=== PATIENT | male | born 1950 | race Two or more races ===

== ENCOUNTER → 2024-10-24 | Outpatient (CLI) | payer MEDICARE, BC, SELFPAY ==
--- NOTE | 2024-10-24 | XR_ITS ---
Examination: CT chest, without intravenous contrast. Sagittal and coronal 2-D reconstructions. Exam date and time: October 24, 2024 1055 hours INDICATIONS: COPD diagnosis multiple history 48 years CTDI:vol (mGy) 16.5 DLP: (mGycm) 661 Technique: Multiple 3.0 mm axial sections of the chest to been obtained. Bone and lung density settings are obtained. Sagittal and coronal 2-D reconstructions have been obtained. Low dose protocols were performed. One or more of the following dose reduction techniques were used; automated exposure control, adjustment of the mA and/or KV according to patient size, use of iterative reconstruction technique. Findings: No thoracic aortic aneurysm dilatation Pulmonary artery segments are not enlarged Heavy calcification left anterior descending left circumflex right coronary arteries COPD with areas of airspace destruction No pneumonia, pulmonary edema, pleural disease or pulmonary nodules Mass involving the medial margin of the spleen, 4.2 cm, axial image 156 Small gallstone No pancreatic mass IMPRESSION: COPD No pneumonia, pulmonary edema pleural disease or pulmonary nodules 4.2 cm splenic mass, recommend abdominal sonography follow-up
== END | disposition home or self-care (01) ==
PROVIDERS: PCP Family Medicine; Referring Provider Family Medicine; Visit Provider Family Medicine
DX: J44.9 Chronic obstructive pulmonary disease, unspecified (principal)
CPT/HCPCS: 71250

== ENCOUNTER 2024-11-01 10:30 | Emergency (ER) | payer MEDICARE, BC, SELFPAY ==
[2024-11-01 10:31] VITALS: BMI 32.5
[2024-11-01 10:40] VITALS: BP 168/93; PULSE 82; RESP 18; TEMP 36.6; O2SAT 98
--- NOTE | 2024-11-01 10:40 | XR_ITS ---
Examination: CT abdomen and pelvis without contrast. Coronal 3-D reconstructions. Sagittal 2-D reconstructions. Date and time of exam:November 01, 2024 1152 hours Comparison April 11, 2021 INDICATIONS: Generalized abdominal pain with bilateral flank pain today, 13 mm right kidney stone on CT study April 11, 2021 CTDI: vol (mGy): 12 DLP: (mGycm): 837 Technique: Axial images of the abdomen have been obtained, 3 mm slice thickness Intravenous contrast material has not been administered. Low dose protocols were performed. One or more of the following dose reduction techniques were used; automated exposure control, adjustment of the mA and/or KV according to patient size, use of iterative reconstruction technique. Findings: Heavy calcification left anterior descending coronary artery Mild enlargement cardiac No focal liver lesions Tiny gallstones Lobulation versus small mass medial margin spleen, 38 mm, image 69 No pancreatic or adrenal mass Significant parenchymal scar formation right kidney with 13 mm lower pole right renal calculus No hydronephrosis or ureteral calculi Aorta normal size Normal appendix No bowel obstruction Colonic diverticulosis Transverse prostate dimension 4.5 cm Contracted urinary bladder Moderate osteopenia IMPRESSION: Cholelithiasis Recommend splenic ultrasound follow-up to differentiate lobulation versus 38 mm mass medial margin of the spleen 13 mm nonobstructing lower pole right renal calculus with significant scar formation right kidney Normal appendix No bowel obstruction
--- NOTE | 2024-11-01 10:41 | PD.EDBACK ---
ED Back Injury Pain RME/HPI General Chief Complaint: Back Pain/Injury Stated Complaint: BACK PAIN Time Seen by Provider: 11/01/24 10:42 Source: patient Arrival date/time: 11/01/24 10:30 74-year-old male with a history of hyperlipidemia, hypertension, type 2 diabetes presents to the emergency room with a chief complaint of dysuria, lower lumbar and right CVA tenderness x 2 days Mode of arrival: ambulatory Limitations: no limitations Related Data Home Medications ?Medication ?Instructions ?Recorded ?Confirmed aspirin 81 mg tablet 81 mg PO QDAY 03/06/24 03/06/24 Held on 03/06/24. Instructions: Resume on 03/07/24. RE-START MEDICATION ON THIS DATE AT YOUR USUAL TIME atorvastatin 40 mg tablet 20 mg PO BID 03/06/24 03/06/24 clopidogrel 75 mg tablet 75 mg PO QDAY 03/06/24 03/06/24 Held on 03/06/24. Instructions: Resume on 03/07/24. RE-START MEDICATION ON THIS DATE AT YOUR USUAL TIME doxazosin 4 mg tablet 4 mg PO QDAY 03/06/24 03/06/24 finasteride 5 mg tablet 5 mg PO DAILY 03/06/24 03/06/24 folic acid 400 mcg tablet 0.4 mg PO QDAY 03/06/24 03/06/24 lisinopril 20 mg tablet 20 mg PO QDAY 03/06/24 03/06/24 metoprolol succinate 200 mg 100 mg PO BID 03/06/24 03/06/24 tablet,extended release 24 hr omeprazole 20 mg capsule,delayed 20 mg PO BID 03/06/24 03/06/24 release semaglutide 1 mg/dose (4 mg/3 mL) 1 mg subcut QWEEK 03/06/24 03/06/24 subcutaneous pen injector (Ozempic) Previous Rx's ?Medication ?Instructions ?Recorded hydrocodone 5 mg-acetaminophen 325 1 tab PO BID PRN pain #10 tabs 11/01/24 mg tablet tamsulosin 0.4 mg capsule (Flomax) 0.4 mg PO QDAY #14 caps 11/01/24 Allergies Allergy/AdvReac Type Severity Reaction Status Date / Time Iodinated Contrast Media Allergy Severe Hives Verified 04/11/21 10:17 Review of Systems Review of Systems Systems Reviewed: All systems reviewed, normal except as documented Constitutional Constitutional: Reports system reviewed and no additional complaints, except as documented, Denies fatigue, Denies fever(s), Denies headache(s) and Denies weakness Eyes Eyes: Reports system reviewed and no additional complaints, except as documented, Denies blurry vision and Denies change in vision ENT Ears, Nose, Mouth, and Throat: Reports system reviewed and no additional complaints, except as documented, Denies otalgia, Denies headache(s), Denies nasal congestion, Denies throat swelling and Denies vertigo Cardiovascular Cardiovascular: Reports system reviewed and no additional complaints, except as documented, Denies chest pain, Denies dyspnea and Denies dyspnea on exertion Respiratory Respiratory: Reports system reviewed and no additional complaints, except as documented, Denies chest congestion, Denies cough, Denies dyspnea, Denies dyspnea on exertion and Denies wheezing Gastrointestinal Gastrointestinal: Reports system reviewed and no additional complaints, except as documented, Denies abdominal pain, Denies cramping, Denies nausea and Denies vomiting Genitourinary Genitourinary: Reports system reviewed and no additional complaints, except as documented, Reports dysuria, Denies hematuria, Denies painful ejaculations and Denies penile discharge Musculoskeletal Musculoskeletal: Reports system reviewed and no additional complaints, except as documented and Reports back pain Integumentary/Breasts Skin/Breast: Reports system reviewed and no additional complaints, except as documented and Denies wounds Neurologic Neurologic: Reports system reviewed and no additional complaints, except as documented, Denies confusion, Denies headache(s), Denies lack of coordination, Denies vertigo and Denies weakness Psychiatric Psychiatric: Reports system reviewed and no additional complaints, except as documented, Denies anxiety, Denies confusion, Denies depression, Denies paranoia, Denies suicidal ideation and Denies tactile hallucinations Endocrine Endocrine: Reports system reviewed and no additional complaints, except as documented and Denies fatigue Hematologic/Lymphatic Hematologic/Lymphatic: Reports system reviewed and no additional complaints, except as documented and Denies lymphadenopathy Allergic/Immunologic Allergic/Immunologic: Reports system reviewed and no additional complaints, except as documented, Denies throat swelling, Denies urticaria and Denies wheezing Past Medical History Past Medical History NEUROLOGIC: Positive Neurological Disorders and Transient Ischemic Attacks (TIA) CARDIAC: Positive Cardiac Disorders, Hypercholesterolemia and Hypertension; Negative Congestive Heart Failure RESPIRATORY: Negative Chronic Obstructive Pulmonary Disease (COPD) GASTROINTESTINAL: Negative Gastrointestinal Disorders GENITOURINARY: Negative Genitourinary Disorders, Renal Disease or Benign Prostatic Hyperplasia MUSCULOSKELETAL: Positive Musculoskeletal Disorders ENT: Positive Cataracts ENDOCRINE: Positive Endocrine Disorders and Diabetes Mellitus Type 2; Negative Diabetes Mellitus Type 1 HEMATOLOGIC: Negative Blood Disorders OTHER HISTORY: Negative Blood Transfusions, Anesthesia Reactions, Chemotherapy, Radiation Therapy or Cancer Surgical History SURGICAL: Positive Coronary Stent (x8), Cardiac Catheterization and Angiogram; Negative Open Heart Surgery, Pacemaker, Endocrine Surgery, Abdominal Surgery or Joint Replacement Social History SMOKING STATUS: Never smoker ED Exam General Limitations: Present no limitations General appearance: Present alert and in no apparent distress Head Head exam: Present atraumatic Eye Eye exam: Present normal appearance, PERRL and EOMI ENT ENT exam: Present normal exam, normal oropharynx and mucous membranes moist Neck Neck exam: Present normal inspection, full ROM and trachea midline Chest Chest inspection: Present normal inspection and symmetric chest wall rise Respiratory Respiratory exam: Present normal lung sounds bilaterally Cardiovascular Cardiovascular exam: Present regular rate, normal rhythm and normal heart sounds Abdominal Exam Abdominal exam: Present soft and normal bowel sounds Extremities Exam Extremities exam: Present normal inspection and full ROM Back Exam Back exam: Present normal inspection, full ROM, tenderness, CVA tenderness (R) and vertebral tenderness Neurological Exam Neurological exam: Present alert, oriented X3 and CN II-XII intact Psychiatric Psychiatric exam: Present normal affect and normal mood Skin Skin exam: Present warm, dry, intact and normal color Course Quality Measures none Orders Category Date Time Status CT abdomen pelvis wo con Stat Exams 11/01/24 10:40 Completed CBC Stat Lab 11/01/24 10:47 Completed CMP [Comprehensive Metabolic Panel] Stat Lab 11/01/24 10:47 Completed Lipase Stat Lab 11/01/24 10:47 Completed UA [Urinalysis] Stat Lab 11/01/24 11:28 Completed Urine Culture Stat Lab 11/01/24 11:28 Received Ketorolac Inj [Toradol Inj] Med 11/01/24 10:41 Discontinued 30 mg IM X1 ONE Vital Signs Vital signs: Vital Signs Temperature 97.9 F 11/01/24 10:40 Pulse Rate 82 11/01/24 10:40 Respiratory Rate 18 11/01/24 10:40 Blood Pressure 168/93 H 11/01/24 10:40 Pulse Oximetry (%) 98 11/01/24 10:40 Oxygen Delivery Method Room Air 11/01/24 10:40 O2 saturation 98% within normal limits Back Pain / Injury MDM Narrative MDM Narrative:: 74-year-old male with a history of hyperlipidemia, hypertension, type 2 diabetes presents to the emergency room with a chief complaint of dysuria, lower lumbar and right CVA tenderness x 2 days The patient is hemodynamically stable and in no apparent distress. Physical examination shows right CVA tenderness and lumbar back pain with palpation. CT of the abdomen and pelvis was completed and shows a 13 mm nonobstructing renal calculi. The CT of the abdomen and pelvis also had an incidental finding of a possible mass in the spleen. Patient was educated about this incidental finding and the patient was educated to follow-up with his primary care provider has a radiologist recommends an ultrasound of the spleen to rule out a mass. Patient was discharged and educated to follow-up with his primary care provider get a referral to urologist for further management of the stone. Patient was given pain medication and educated to return to the emergency room for any evidence of worsening signs or symptoms Patient data External records reviewed:: [facility] previous records Clinical information provided by:: patient Social determinants that could affect healthcare access:: none Patient has the following chronic illnesses:: Hyperlipidemia How is presenting disease/condition affected by chronic disease/condition?: no chronic disease Evaluation data The following diagnostics were reviewed and interpreted by me:: lab results and radiology exam(s) Lab and/or radiology exams considered but not ordered:: Labs and radiology exams considered and ordered Interpretation Summary: Abdomen and pelvis CT-Findings: Heavy calcification left anterior descending coronary artery Mild enlargement cardiac No focal liver lesions Tiny gallstones Lobulation versus small mass medial margin spleen, 38 mm, image 69 No pancreatic or adrenal mass Significant parenchymal scar formation right kidney with 13 mm lower pole right renal calculus No hydronephrosis or ureteral calculi Aorta normal size Normal appendix No bowel obstruction Colonic diverticulosis Transverse prostate dimension 4.5 cm Contracted urinary bladder Moderate osteopenia IMPRESSION: Cholelithiasis Recommend splenic ultrasound follow-up to differentiate lobulation versus 38 mm mass medial margin of the spleen 13 mm nonobstructing lower pole right renal calculus with significant scar formation right kidney Normal appendix No bowel obstruction Medications / Prescriptions Medications or Prescriptions considered but not ordered:: Medication given Medication administrations:: Medication Administration History Discontinued Medications Ketorolac Tromethamine (Ketorolac Inj 60 Mg/2 Ml Vial) 30 mg IM X1 ONE Stop: 11/01/24 10:42 Last Admin: 11/01/24 11:20 Dose: 30 mg Documented By: Rx given Consultations Consultation(s) initiated? (list below): No Diagnosis Differential diagnosis back pain/injury: lumbar radiculopathy, strain of lumbar region, renal colic, discitis and other (Renal calculi) Most likely diagnosis given after review of the tests above:: Renal calculi Admission Indicated Admission indicated?: not indicated Admission Request Was there a request for admission?: No Disposition Plan Disposition Plan: Discharge Discharge Attestation Discharge Attestation: The patient and all family members were given an opportunity to ask questions and understood the discharge instructions. Discharge instructions specifically effects, indications for sooner follow up or return to the emergency department, and the expected course of current diagnosis. Patient condition: Stable Discharge Plan Plan Patient Disposition: HOME (Self Care) Disposition Comment: Stable Prescriptions/Referrals Prescriptions/Med Rec: New tamsulosin [Flomax] 0.4 mg capsule 0.4 mg PO QDAY Qty: 14 0RF hydrocodone-acetaminophen 5-325 mg tablet 1 tab PO BID MDD 10mg PRN (Reason: pain) Qty: 10 0RF No Action atorvastatin 40 mg Tablet 20 mg PO BID Rx Instructions: 0.5 tablet bid metoprolol succinate 200 mg Tablet Extended Release 24 Hr 100 mg PO BID Rx Instructions: 0.5 tablet bid lisinopril 20 mg Tablet 20 mg PO QDAY clopidogrel 75 mg Tablet 75 mg PO QDAY folic acid 400 mcg Tablet 0.4 mg PO QDAY omeprazole 20 mg Capsule,Delayed Release(Dr/Ec) 20 mg PO BID doxazosin 4 mg Tablet 4 mg PO QDAY aspirin 81 mg Tablet 81 mg PO QDAY finasteride 5 mg Tablet 5 mg PO DAILY Ozempic 1 mg/dose (4 mg/3 mL) Pen Injector 1 mg SUBCUT QWEEK Referrals: Leroy Chicas MD [Primary Care Provider] - In 1 week Problem List Clinical Impression: Renal colic, Calculus, renal Patient/Caregiver Discharge Instructions Education Materials: ED Kidney Stone w/ Colic Additional Instructions: Please follow-up with your primary care provider in the next [address] of your abdomen was completed and found a 13 mm renal stone. Pain medication was sent to your pharmacy please pick it up and take it as indicated. There is also an incidental finding in your spleen. Our radiologist recommends getting an ultrasound of your spleen as there is a possibility there is a mass. For any evidence of worsening signs or symptoms please return to the emergency room immediately Print Language: Uzbek Stand Alone Forms: Charo Award Info., Patient Portal Info Letter PA/CD REACTOR OPERATOR Supervising Physician PA/CD REACTOR OPERATOR Supervising Physician: Dr. Tang
[2024-11-01 11:17] LABS: Basophils # (Auto) 0.1 Thou/mm3 (0.0-0.2); Basophils % (Auto) 1 % (0-2.5); Eosinophils # (Auto) 0.2 Thou/mm3 (0.0-0.5); Eosinophils % (Auto) 3 % (0-10); Hematocrit 41.8 % (41.0-53.0); Hemoglobin 13.8 g/dL (13.5-16.0); Immature Granulocytes % (Auto) 1 % (0-0); Immature Granulocytes Auto 0.03 Thou/mm3 (0.00-0.00); Lymphocytes # (Auto) 1.4 Thou/mm3 (1.0-4.8); Lymphocytes % (Auto) 23 % (10-50); Mean Corpuscular Hemoglobin 29.4 pg (25.0-35.0); Mean Corpuscular Volume 89 fL (80-100); Monocytes # (Auto) 0.5 Thou/mm3 (0.0-0.8); Monocytes % (Auto) 8 % (0-12); Neutrophils % (Auto) 65 % (37-80); Nucleated Red Blood Cell % 0 /100 WBC (0); Platelet Count 172 Thou/mm3 (140-440); RDW Standard Deviation 38.8 fL (35.1-43.9); Red Blood Count 4.69 Miln/mm3 (4.50-5.90); White Blood Count 6.2 Thou/mm3 (3.8-10.6)
[2024-11-01] MEDS: KETOROLAC INJ 60 MG/2 ML VIAL 30 MG IM (11:20)
[2024-11-01 11:41] LABS: Collection Type, Urine Clean Catch
[2024-11-01 11:43] LABS: Alanine Aminotransferase 17 U/L (10-49); Albumin, Serum 4.5 gm/dL (3.4-4.8); Alkaline Phosphatase 109 U/L (46-116); Anion Gap 5 (7-16); Aspartate Amino Transferase 22 U/L (0-34); BUN/Creatinine Ratio 11 Ratio (12-20); Bilirubin,Total 0.7 mg/dL (0.3-1.2); Blood Urea Nitrogen 11 mg/dL (9-23); Carbon Dioxide 28.2 mMol/L (20.0-31.0); Chloride 108 mMol/L (98-107); Estimated Creatinine Clearance 80.1 mL/min (>60); Globulin 2.3 gm/dL (2.3-3.5); Glucose 135 mg/dL (74-106); Lipase 55 U/L (12-53); Osmolality,Calculated 282 (275-295); Potassium 5.1 mMol/L (3.4-5.1); Sodium 141 mMol/L (136-145); Total Protein 6.8 gm/dL (5.7-8.2); eGFR > 60 See Note
[2024-11-01 11:48] LABS: Bacteria,Urine Rare; Bilirubin,Urine Negative (Negative); Blood,Urine 2+ (Negative); Clarity,Urine Clear (Clear/Hazy); Color,Urine Yellow (Lt Yel-Yel); Glucose, Urine 2+ (Negative); Hyaline Casts,Urine < 1 /hpf (0-1); Ketones,Urine Negative (Negative); Leukocyte Esterase,Urine Negative (Negative); Nitrite,Urine Negative (Negative); Protein,Urine 1+ (Neg - Trace); RBC,Urine 34 /hpf (0-3); Specific Gravity,Urine 1.031 (1.001-1.035); Squamous Epithelial Cell,Urine < 1 /hpf (0-5); Urobilinogen,Urine Negative mg/dL (0.0-1.0); WBC,Urine 4 /hpf (0-5)
== END 2024-11-01 13:59 | disposition home or self-care (01) ==
PROVIDERS: Nurse Practitioner Family; Emergency Provider Emergency Medicine; PCP Family Medicine
DX: N20.0 Calculus of kidney (principal); N23 Unspecified renal colic; I10 Essential (primary) hypertension; E78.5 Hyperlipidemia, unspecified; E11.9 Type 2 diabetes mellitus without complications
CPT/HCPCS: 36415; 74176; 80053; 81001; 83690; 85025; 87086; 96372; 99284; J1885

== ENCOUNTER 2024-11-16 20:00 | Emergency (ER) | payer MEDICARE, BC, SELFPAY ==
[2024-11-16 20:04] VITALS: BMI 33.9
[2024-11-16 20:13] VITALS: BP 197/113; PULSE 79; RESP 17; TEMP 36.6; O2SAT 98
--- NOTE | 2024-11-16 20:14 | XR_ITS ---
Examination: Abdomen sonogram, Limited Date and time of exam: November 16, 2024 2035 hrs. Indications: Right upper abdominal tenderness today Technique: Real-time hale scale transabdominal sonographic images of the upper abdomen obtained. Findings: Gallbladder sludge No gallstones Normal gallbladder wall Normal common bile duct 0.3 cm Pancreatic head 3.6 cm Liver 22.3 cm lobular contour fatty infiltration no focal liver lesions Normal hepatopedal portal venous flow Patent IVC Impression: Negative for cholelithiasis, negative for cholecystitis Normal common bile duct Significant hepatomegaly, primary hepatocellular disease, fatty infiltration
--- NOTE | 2024-11-16 20:14 | XR_ITS ---
Examination: CT abdomen and pelvis without contrast. Coronal 3-D reconstructions. Sagittal 2-D reconstructions. Date and time of exam:November 16, 2024 10:00 PM Comparison November 01, 2024 Indications: Right flank pain beginning 2 weeks ago CTDI: vol (mGy): 12.7 DLP: (mGycm): 848 Technique: Axial images of the abdomen have been obtained, 3 mm slice thickness Intravenous contrast material has not been administered. Low dose protocols were performed. One or more of the following dose reduction techniques were used; automated exposure control, adjustment of the mA and/or KV according to patient size, use of iterative reconstruction technique. Findings: 12 mm hyperdense lesion medial spleen No focal liver lesion Cholelithiasis No pancreatic or adrenal mass 13 mm calculus lower pole right kidney with significant right renal scar formation No hydronephrosis Abdominal aortic calcification no aneurysmal dilatation No bowel obstruction Transverse prostate dimension 4.8 cm Urinary bladder intact Impression: Recommend elective MRI abdomen follow-up to further assess splenic lesions 13 mm nonobstructing calculus lower pole right kidney Moderate prostatomegaly
--- NOTE | 2024-11-16 20:14 | XR_ITS ---
Examination: CT lumbar spine, without contrast. 2-D sagittal reconstructions. 2-D coronal reconstructions. 3-D reconstructions. Date and time of exam:November 16, 2024 1002 hrs. Indications: Right-sided back pain beginning 2 weeks ago CTDI: vol (mGy):34 DLP: (mGycm):882 Technique: Multiple 1.25 mm axial sections of the lumbar spine without intravenous contrast have been obtained. 2-D sagittal and coronal reconstructions have been obtained. 3-D reconstructions have been obtained. Low dose protocols were performed. One or more of the following dose reduction techniques were used; automated exposure control, adjustment of the mA and/or KV according to patient size, use of iterative reconstruction technique. Findings: Prominent osteopenia No lumbar vertebral body fracture Mild disc narrowing posteriorly L5-S1 No spondylolisthesis Intact pedicles laminated transverse and posterior spinous processes L5-S1 2 mm central lumbar disc bulge L4-L5 3 mm central lumbar disc bulge L3-L4 no disc protrusion L2-L3 no disc protrusion L1-L2 no disc protrusion Impression: L5-S1 2 mm central lumbar disc bulge L4-L5 3 mm central lumbar disc bulge
--- NOTE | 2024-11-16 20:15 | XR_ITS ---
Examination: Ultrasound spleen Technique: Sonographic images soft tissue spleen Exam date and time: November 16, 2024 205 hrs. Indications: Lobulation versus 38 mm mass medial margin spleen on CT abdomen pelvis November 01, 2024 Findings: Spleen 11.3 cm No splenic mass Impression: No splenic mass
[2024-11-16] MEDS: SODIUM CHLORIDE 0.9% 1000 ML 1,000 ML 999 ML IV (20:22)
[2024-11-16] MEDS: ONDANSETRON INJ 2 MG/ML INJ 2 ML 4 MG IV (20:23)
[2024-11-16] MEDS: HYDROmorphone INJ 2 MG/ML VIAL 1 MG IVP ×2 (20:23→23:40)
[2024-11-16 20:45] VITALS: BP 188/87
[2024-11-16 20:49] LABS: Collection Type, Urine Clean Catch; WBC,Urine 0 /hpf (0-5)
[2024-11-16 20:49] LABS: Lactate (Lactic Acid) 1.4 mMol/L (0.4-2.0)
[2024-11-16 20:50] LABS: Basophils # (Auto) 0.1 Thou/mm3 (0.0-0.2); Basophils % (Auto) 1 % (0-2.5); Eosinophils # (Auto) 0.2 Thou/mm3 (0.0-0.5); Eosinophils % (Auto) 3 % (0-10); Hematocrit 42.1 % (41.0-53.0); Hemoglobin 14.2 g/dL (13.5-16.0); Immature Granulocytes % (Auto) 1 % (0-0); Immature Granulocytes Auto 0.09 Thou/mm3 (0.00-0.00); Lymphocytes # (Auto) 1.9 Thou/mm3 (1.0-4.8); Lymphocytes % (Auto) 23 % (10-50); Mean Corpuscular HGB Conc 33.7 g/dl (31.0-37.0); Mean Corpuscular Hemoglobin 29.2 pg (25.0-35.0); Mean Corpuscular Volume 87 fL (80-100); Monocytes # (Auto) 0.7 Thou/mm3 (0.0-0.8); Monocytes % (Auto) 8 % (0-12); Neutrophils # (Auto) 5.2 Thou/mm3 (1.8-7.7); Neutrophils % (Auto) 64 % (37-80); Nucleated Red Blood Cell % 0 /100 WBC (0); Platelet Count 189 Thou/mm3 (140-440); Red Blood Count 4.86 Miln/mm3 (4.50-5.90); White Blood Count 8.1 Thou/mm3 (3.8-10.6)
[2024-11-16 21:20] LABS: Bacteria,Urine Rare; Bilirubin,Urine Negative (Negative); Blood,Urine 2+ (Negative); Clarity,Urine Clear (Clear/Hazy); Color,Urine Lt-Yellow (Lt Yel-Yel); Culture Indicated,Urine Not Indicated; Glucose, Urine Negative (Negative); Ketones,Urine Negative (Negative); Leukocyte Esterase,Urine Negative (Negative); Nitrite,Urine Negative (Negative); Protein,Urine Trace (Neg - Trace); RBC,Urine 5 /hpf (0-3); Specific Gravity,Urine 1.019 (1.001-1.035); Squamous Epithelial Cell,Urine < 1 /hpf (0-5); Urobilinogen,Urine Negative mg/dL (0.0-1.0)
[2024-11-16 21:21] LABS: Sed Rate (ESR) 6 mm/hr (0-20)
[2024-11-16 21:28] LABS: Alanine Aminotransferase 17 U/L (10-49); Albumin, Serum 4.6 gm/dL (3.4-4.8); Alkaline Phosphatase 99 U/L (46-116); Anion Gap 6 (7-16); Aspartate Amino Transferase 19 U/L (0-34); BUN/Creatinine Ratio 15 Ratio (12-20); Bilirubin,Direct 0.2 mg/dL (0.0-0.3); Bilirubin,Total 0.6 mg/dL (0.3-1.2); Blood Urea Nitrogen 15 mg/dL (9-23); Calcium 10.1 mg/dL (8.3-10.6); Carbon Dioxide 28.8 mMol/L (20.0-31.0); Chloride 108 mMol/L (98-107); Estimated Creatinine Clearance 81.7 mL/min (>60); Glucose 146 mg/dL (74-106); Magnesium 1.9 mg/dL (1.6-2.6); Osmolality,Calculated 288 (275-295); Potassium 4.6 mMol/L (3.4-5.1); Procalcitonin 0.06 ng/ml (0.0-0.49); Sodium 143 mMol/L (136-145); Thyroid Stimulating Hormone 2.41 uIU/mL (0.55-4.78); Total Protein 7.2 gm/dL (5.7-8.2); eGFR > 60 See Note
[2024-11-16 21:46] LABS: C-Reactive Protein < 0.4 mg/dL (0.0-0.9)
[2024-11-16 22:28] LABS: Amylase 66 U/L (30-118)
[2024-11-16 22:35] VITALS: BP 131/86; PULSE 82; RESP 17; TEMP 36.6; O2SAT 96
--- NOTE | 2024-11-16 22:53 | PD.EDBACK ---
ED Back Injury Pain RME/HPI General Chief Complaint: Back Pain/Injury Stated Complaint: BACK PAIN Time Seen by Provider: 11/16/24 20:06 Arrival date/time: 11/16/24 20:00 RME / HPI RME / HPI Narrative: This section includes all my notes and documentations, including HPI, PE, and ED course. Jono Tang MD HPI: 74-year-old male here to be evaluated with about a week history of severe low back pain. No vomiting. No fever. No difficulty urinating or hematuria or other urinary symptoms. No numbness or tingling. No paralysis. No loss of control of bladder or bowels. No saddle numbness. No other complaints. ROS: All negative except as documented in HPI. Physical Exam: General: Alert and oriented. In obvious pain. Eyes: Conjunctivae and lids clear. ENT: No nasal congestion. Neck: Supple. Lungs: No respiratory distress. Abdomen: Soft and nontender. Back: No CVA tenderness. Equivocal lumbar midline tenderness. Legs: No clubbing, cyanosis, edema. Skin: Warm and dry. Neuro: Alert and oriented X 3. No peripheral motor deficits. I reviewed all diagnostic test results. My review of the abdominal CT report is no acute findings. My review of the lumbar spine CT report is disc bulgings. My review of the gallbladder US report is no acute findings. My review of the spleen US report is no acute findings. Blood tests and urine tests unremarkable. At this point, diagnoses include lumbar spinal stenosis. Treatment here included IV fluid and Zofran and Dilaudid. Significant improvement noted. Recommended more outpatient care. Based on my best medical judgment, made decision no further evaluation or treatment indicated at this time. Patient understands and agrees to the discharge instructions customized and printed, see below. Discharge Instructions from Dr. Tang: --After evaluation, we are dealing with Sciatica (same as Lumbar Radiculopathy or Spinal Stenosis), disc bulgings are pinching your nerves causing your severe pain. --This condition is difficult because normal pain medications don?t work very well on nerve pain. --Despite the pain, try to resume your normal chores and activities.? Because inactivity is terrible for this condition.? And activity won?t make your condition worse.? Use a cane of stick in your hand to help stand and walk.? --Use Cyclobenzaprine and Tylenol with codeine and lidocaine patches as needed.? Don't expect the pain to go away completely, hoping to take the edge off.?? --When resting and sleeping, try right sided or left position (with your knees to your chest and bending forward).? This can take some pressure off the nerve and help your pain. --Apply ice or heat if helpful. --See a private doctor (outside the ER) on 11/18/24 for recheck and further care. Ask to help you get more care not available here in the ER.? Such as MRI imaging, physical therapy, and referrals to see specialists.? Some choose to have surgery for this condition. But you need to have MRI imaging to confirm the diagnosis and assess the severity to get the best treatments. --Seek immediate medical care with paralysis in your foot, losing control of your bladder or bowels, saddle numbness (anal numbness), or with any concerns.?? Jono Tang MD Related Data Home Medications ?Medication ?Instructions ?Recorded ?Confirmed aspirin 81 mg tablet 81 mg PO QDAY 03/06/24 03/06/24 Held on 03/06/24. Instructions: Resume on 03/07/24. RE-START MEDICATION ON THIS DATE AT YOUR USUAL TIME atorvastatin 40 mg tablet 20 mg PO BID 03/06/24 03/06/24 clopidogrel 75 mg tablet 75 mg PO QDAY 03/06/24 03/06/24 Held on 03/06/24. Instructions: Resume on 03/07/24. RE-START MEDICATION ON THIS DATE AT YOUR USUAL TIME doxazosin 4 mg tablet 4 mg PO QDAY 03/06/24 03/06/24 finasteride 5 mg tablet 5 mg PO DAILY 03/06/24 03/06/24 folic acid 400 mcg tablet 0.4 mg PO QDAY 03/06/24 03/06/24 lisinopril 20 mg tablet 20 mg PO QDAY 03/06/24 03/06/24 metoprolol succinate 200 mg 100 mg PO BID 03/06/24 03/06/24 tablet,extended release 24 hr omeprazole 20 mg capsule,delayed 20 mg PO BID 03/06/24 03/06/24 release semaglutide 1 mg/dose (4 mg/3 mL) 1 mg subcut QWEEK 03/06/24 03/06/24 subcutaneous pen injector (Ozempic) Previous Rx's ?Medication ?Instructions ?Recorded hydrocodone 5 mg-acetaminophen 325 1 tab PO BID PRN pain #10 tabs 11/01/24 mg tablet tamsulosin 0.4 mg capsule (Flomax) 0.4 mg PO QDAY #14 caps 11/01/24 acetaminophen 300 mg-codeine 30 mg 2 tab PO TID PRN pain #20 tabs 11/16/24 tablet cyclobenzaprine 5 mg tablet 10 mg (2 x 5 mg) PO TID PRN muscle 11/16/24 spasm #30 tabs lidocaine 5 % topical patch 2 patch topical QDAY PRN pain #30 11/16/24 (Lidoderm) ea Allergies Allergy/AdvReac Type Severity Reaction Status Date / Time Iodinated Contrast Media Allergy Severe Hives Verified 04/11/21 10:17 Course Quality Measures none Orders Category Date Time Status MRI Screening NOW Care 11/16/24 23:16 Completed Saline [Insert IV] NOW Care 11/16/24 20:[address] abdomen pelvis wo con Stat Exams 11/16/24 20:[address] lumbar spine wo con Stat Exams 11/16/24 20:14 Completed MR lumbar spine wo con Stat Exams 11/16/24 Ordered US gall bladder Stat Exams 11/16/24 20:14 Completed US spleen Stat Exams 11/16/24 20:15 Completed Amylase Stat Lab 11/16/24 20:10 Completed BMP [Basic Metabolic Panel] Stat Lab 11/16/24 20:10 Completed CBC Stat Lab 11/16/24 20:10 Completed CRP [C-Reactive Protein] Stat Lab 11/16/24 20:10 Completed ESR [Sed Rate (ESR)] Stat Lab 11/16/24 20:10 Completed Lactate (Lactic Acid) Stat Lab 11/16/24 20:10 Completed Liver Panel Stat Lab 11/16/24 20:10 Completed Magnesium Stat Lab 11/16/24 20:10 Completed Procalcitonin Stat Lab 11/16/24 20:10 Completed TSH [Thyroid Stimulating Hormone] Stat Lab 11/16/24 20:10 Completed UA, C/S IF [Urinalysis, C/S if Indicated] Stat Lab 11/16/24 20:36 Completed HYDROmorphone INJ [Dilaudid Inj] Med 11/16/24 20:13 Discontinued 1 mg IVP X1 ONE HYDROmorphone INJ [Dilaudid Inj] Med 11/16/24 23:13 Discontinued 1 mg IVP X1 ONE Ondansetron Inj [Zofran Inj] Med 11/16/24 20:13 Discontinued 4 mg IV X1 ONE Sodium Chloride 0.9% 1000 ml [Ns] 1,000 ml Med 11/16/24 20:13 Discontinued IV 999 mls/hr Vital Signs Vital signs: Vital Signs Temperature 97.9 F 11/16/24 20:13 Pulse Rate 79 11/16/24 20:13 Respiratory Rate 17 11/16/24 20:13 Blood Pressure 197/113 H 11/16/24 20:13 Pulse Oximetry (%) 98 11/16/24 20:13 Oxygen Delivery Method Room Air 11/16/24 20:13 Back Pain / Injury Patient data External records reviewed:: [facility] previous records Clinical information provided by:: patient and spouse Social determinants that could affect healthcare access:: none Patient has the following chronic illnesses:: Hypertension and BPH How is presenting disease/condition affected by chronic disease/condition?: uneffected by Evaluation data The following diagnostics were reviewed and interpreted by me:: lab results and radiology exam(s) Lab and/or radiology exams considered but not ordered:: None Interpretation Summary: Lumbar spinal stenosis Medications / Prescriptions Medications or Prescriptions considered but not ordered:: None Medication administrations:: Medication Administration History Discontinued Medications Hydromorphone HCl (Hydromorphone Inj 2 Mg/Ml Vial) 1 mg IVP X1 ONE Stop: 11/16/24 20:14 Last Admin: 11/16/24 20:23 Dose: 1 mg Documented By: HARLEY Hydromorphone HCl (Hydromorphone Inj 2 Mg/Ml Vial) 1 mg IVP X1 ONE Stop: 11/16/24 23:14 Last Admin: 11/16/24 23:40 Dose: 1 mg Documented By: RAVINDER Sodium Chloride (Ns) 1,000 mls @ 999 mls/hr IV .Q1H1M ONE Stop: 11/16/24 21:13 Last Infusion: 11/16/24 21:37 Dose: Infused Documented By: Admin: 11/16/24 20:22 Dose: 999 mls/hr Documented By: HARLEY Ondansetron HCl (Ondansetron Inj 2 Mg/Ml Inj 2 Ml) 4 mg IV X1 ONE; Protocol Stop: 11/16/24 20:14 Last Admin: 11/16/24 20:23 Dose: 4 mg Documented By: HARLEY IV fluid and Zofran and Dilaudid Consultations Consultation(s) initiated? (list below): No Diagnosis Differential diagnosis back pain/injury: lumbar radiculopathy, sciatica, strain of lumbar region, renal colic, pyelonephritis and thoracic back pain Most likely diagnosis given after review of the tests above:: Lumbar spinal stenosis Admission Indicated Admission indicated?: not indicated Explain why admission is indicated or not indicated:: No criteria for admission Admission Request Was there a request for admission?: No Disposition Plan Disposition Plan: Discharge Discharge Attestation Discharge Attestation: The patient and all family members were given an opportunity to ask questions and understood the discharge instructions. Discharge instructions specifically effects, indications for sooner follow up or return to the emergency department, and the expected course of current diagnosis. Patient condition: Stable Discharge Plan Plan Patient Disposition: HOME (Self Care) Prescriptions/Referrals Prescriptions/Med Rec: New acetaminophen-codeine 300-30 mg tablet 2 tab PO TID MDD 6 PRN (Reason: pain) Qty: 20 0RF lidocaine [Lidoderm] 5 % adhesive patch,medicated 2 patch topical QDAY PRN (Reason: pain) Qty: 30 0RF Rx Instructions: leave on most painful area for up to 12 hrs cyclobenzaprine 5 mg tablet 10 mg PO TID PRN (Reason: muscle spasm) Qty: 30 0RF No Action atorvastatin 40 mg Tablet 20 mg PO BID Rx Instructions: 0.5 tablet bid metoprolol succinate 200 mg Tablet Extended Release 24 Hr 100 mg PO BID Rx Instructions: 0.5 tablet bid lisinopril 20 mg Tablet 20 mg PO QDAY clopidogrel 75 mg Tablet 75 mg PO QDAY folic acid 400 mcg Tablet 0.4 mg PO QDAY omeprazole 20 mg Capsule,Delayed Release(Dr/Ec) 20 mg PO BID doxazosin 4 mg Tablet 4 mg PO QDAY aspirin 81 mg Tablet 81 mg PO QDAY finasteride 5 mg Tablet 5 mg PO DAILY Ozempic 1 mg/dose (4 mg/3 mL) Pen Injector 1 mg SUBCUT QWEEK tamsulosin [Flomax] 0.4 mg capsule 0.4 mg PO QDAY Qty: 14 0RF hydrocodone-acetaminophen 5-325 mg tablet 1 tab PO BID MDD 10mg PRN (Reason: pain) Qty: 10 0RF Problem List Clinical Impression: Bulging discs Patient/Caregiver Discharge Instructions Discharge Activity: activity as tolerated Education Materials: Understanding Lumbar Radiculopathy, ED Sciatica Additional Instructions: Discharge Instructions from Dr. Tang: --After evaluation, we are dealing with Sciatica (same as Lumbar Radiculopathy or Spinal Stenosis), disc bulgings are pinching your nerves causing your severe pain. --This condition is difficult because normal pain medications don?t work very well on nerve pain. --Despite the pain, try to resume your normal chores and activities.? Because inactivity is terrible for this condition.? And activity won?t make your condition worse.? Use a cane of stick in your hand to help stand and walk.? --Use Cyclobenzaprine and Tylenol with codeine and lidocaine patches as needed.? Don't expect the pain to go away completely, hoping to take the edge off.?? --When resting and sleeping, try right sided or left position (with your knees to your chest and bending forward).? This can take some pressure off the nerve and help your pain. --Apply ice or heat if helpful. --See a private doctor (outside the ER) on 11/18/24 for recheck and further care. Ask to help you get more care not available here in the ER.? Such as MRI imaging, physical therapy, and referrals to see specialists.? Some choose to have surgery for this condition. But you need to have MRI imaging to confirm the diagnosis and assess the severity to get the best treatments. --Seek immediate medical care with paralysis in your foot, losing control of your bladder or bowels, saddle numbness (anal numbness), or with any concerns.?? Print Language: Uzbek Stand Alone Forms: [employer] Award Info., Patient Portal Info Letter
[2024-11-16 23:42] VITALS: BP 159/99; PULSE 80; RESP 18; O2SAT 97
== END 2024-11-17 00:07 | disposition home or self-care (01) ==
LOC: SERX 23:44
PROVIDERS: Emergency Provider Emergency Medicine; PCP Family Medicine
DX: M51.360 Other intervertebral disc degeneration, lumbar region with discogenic back pain only (principal); M48.061 Spinal stenosis, lumbar region without neurogenic claudication; M51.370 Other intervertebral disc degeneration, lumbosacral region with discogenic back pain only; I10 Essential (primary) hypertension; Z91.041 Radiographic dye allergy status
CPT/HCPCS: 36415; 72131; 74176; 76705; 80048; 80076; 81001; 82150; 83605; 83735; 84145; 84443; 85025; 85652; 86140; 96361; 96374; 96375; 96376; 99284; J2405; J3490; J7030

== ENCOUNTER 2024-11-18 06:21 | Emergency (ER) | payer MEDICARE, BC, SELFPAY ==
--- NOTE | 2024-11-18 | XR_ITS ---
Examination: MRI lumbar spine without contrast Date and time of exam: November 18, 2024 at 0851 hrs. Indications: Lower back pain abdominal bloating walking beginning 3 months ago Technique: Multiple MRI axial and sagittal sections lumbar spine. Sagittal T2-weighted images, TR 3500, TE 118 T1 weighted transverse sections, TR 688 T8.5, T2-weighted sagittal sections T1 weighted sagittal sections TR 621, TE 30 T2 axial sections, TR 4, 190, TE 84. Findings: Adequate alignment lumbar vertebral bodies No lumbar fracture Diffuse lumbar disc desiccation Normal marrow signal lumbar vertebral bodies L5-S1 4 mm central lumbar disc bulge L4-L5 2 mm central lumbar disc bulge Impression: No lumbar fracture L5-S1 4 mm central lumbar disc bulge L4-L5 2 mm central lumbar disc bulge
[2024-11-18 06:21] VITALS: BP 154/118; PULSE 90; RESP 18; TEMP 36.7; O2SAT 96
[2024-11-18 06:28] VITALS: BMI 33.9
--- NOTE | 2024-11-18 06:29 | PD.EDBACK ---
ED Back Injury Pain RME/HPI General Chief Complaint: Back Pain/Injury Stated Complaint: TOLD TO [facility] FOR MRI, BACK PAIN Time Seen by Provider: 11/18/24 06:31 Arrival date/time: 11/18/24 06:21 RME / HPI RME / HPI Narrative: Patient is a 74-year-old male with past medical history of type 2 diabetes, hypertension, hyperlipidemia, CAD/HI s/p 9 stents, and CVA who presents to the ED on 11/18/2024 with 3 weeks of lower back pain which started after bending forward one day. Patient denies any falls or trauma. Pain is described as constant dull lower back pain with occasional radiation to the sides, exacerbated with activity, sitting, and standing, relieved by laying and rest, at its worst rated 10/10 and at its best 5/10. He describes difficulty walking secondary to the pain but otherwise denies lower extremity weakness, numbness, swelling, or loss of urinary/bowel continence. He denies any prior episodes of similar pain before this started. He has tried several prescribed medications so far for pain which have not helped including cyclobenzaprine, prednisone, diazepam, and hydrocodone-acetaminophen. He has also been to several ERs including [facility] and the [facility] in [place] due to the pain. On 11/16 at [facility] ED he was seen and CT lumbar spine showed L4-L5 3 mm central lumbar disc bulge and L5-S1 2 mm central lumbar disc bulge which most likely appears to be the cause of pain. Other imaging studies showed chronic 13 mm nonobstructing calculus lower pole right kidney, prostatomegaly, and fatty liver disease. At that visit he received IV hydromorphone which did help relieve the pain. He was prescribed acetaminophen-codeine after ED discharge but has not tried this medication yet. Complaint: back pain Onset (ago): week(s) Duration: constant Similar Symptoms Previously: No Location: lumbar spine Severity: severe Quality: dull Radiation: flank Severity scale (1-10): 5 Relieving factors: immobilization Exacerbating factors: movement Context: bending Associated symptoms: difficulty walking Treatments prior to arrival: NSAIDS, acetaminophen, ASA, other medications and prescription analgesics Related Data Home Medications ?Medication ?Instructions ?Recorded ?Confirmed aspirin 81 mg tablet 81 mg PO QDAY 03/06/24 03/06/24 Held on 03/06/24. Instructions: Resume on 03/07/24. RE-START MEDICATION ON THIS DATE AT YOUR USUAL TIME atorvastatin 40 mg tablet 20 mg PO BID 03/06/24 03/06/24 clopidogrel 75 mg tablet 75 mg PO QDAY 03/06/24 03/06/24 Held on 03/06/24. Instructions: Resume on 03/07/24. RE-START MEDICATION ON THIS DATE AT YOUR USUAL TIME doxazosin 4 mg tablet 4 mg PO QDAY 03/06/24 03/06/24 finasteride 5 mg tablet 5 mg PO DAILY 03/06/24 03/06/24 folic acid 400 mcg tablet 0.4 mg PO QDAY 03/06/24 03/06/24 lisinopril 20 mg tablet 20 mg PO QDAY 03/06/24 03/06/24 metoprolol succinate 200 mg 100 mg PO BID 03/06/24 03/06/24 tablet,extended release 24 hr omeprazole 20 mg capsule,delayed 20 mg PO BID 03/06/24 03/06/24 release semaglutide 1 mg/dose (4 mg/3 mL) 1 mg subcut QWEEK 03/06/24 03/06/24 subcutaneous pen injector (Ozempic) Previous Rx's ?Medication ?Instructions ?Recorded hydrocodone 5 mg-acetaminophen 325 1 tab PO BID PRN pain #10 tabs 11/01/24 mg tablet tamsulosin 0.4 mg capsule (Flomax) 0.4 mg PO QDAY #14 caps 11/01/24 acetaminophen 300 mg-codeine 30 mg 2 tab PO TID PRN pain #20 tabs 11/16/24 tablet cyclobenzaprine 5 mg tablet 10 mg (2 x 5 mg) PO TID PRN muscle 11/16/24 spasm #30 tabs lidocaine 5 % topical patch 2 patch topical QDAY PRN pain #30 11/16/24 (Lidoderm) ea Allergies Allergy/AdvReac Type Severity Reaction Status Date / Time Iodinated Contrast Media Allergy Severe Hives Verified 11/18/24 06:22 Past Medical History Past Medical History Comments PMH COMMENT: Past Medical History: Type 2 diabetes, hypertension, hyperlipidemia, CAD/HI s/p 9 stents, and TIA/CVA Family History: Notable for cardiac history in father Surgical History: PCI x9 stents Social History: Former smoker quit in 2000, smoked 2 PPD for 40 years, occasional current alcohol use, denies recreational drug use Current Medications: Aspirin 81 mg qday, clopidogrel 75 mg qday, metoprolol 100 mg qday, dulaglutide 1.5 mg qweek, pioglitazone 15 mg qday, lisinopril 10 mg qday, rosuvastatin 40 mg qday, doxazosin 4 mg qday, finasteride 5 mg qday, omeprazole 20 mg qday, nitroglycerin 0.4 mg subl prn, folic acid 0.4 mg qday (Source: Previous visit charts and pharmacy prescribed history) Allergies: Contrast iodine - hives ED Exam Narrative Physical exam: Physical Exam General: Awake and in no acute distress. Conversational and non-toxic appearing. HEENT: Normocephalic, atraumatic, mucous membranes moist. Abdomen: Soft, nondistended, nontender, positive bowel sounds. ?No guarding or rebound tenderness. Neurologic: Alert and oriented x3, no gross neurological deficit, and patient able to move all 4 extremities. Negative straight leg testing bilaterally. Sensations intact bilateral dermatomes L3, L4, L5, S1, S2. Back: No step-offs, no midline tenderness to palpation, mild left musculoskeletal flank pain to palpation. Extremities: No edema. Skin: No rash or ecchymoses. Course Quality Measures none Orders Category Date Time Status MRI Screening NOW Care 11/18/24 06:26 Completed MR lumbar spine wo con Stat Exams 11/18/24 Completed HYDROcodone/APAP 10/325 [[place] 10/325] Med 11/18/24 10:40 Discontinued 1 tab PO X1 ONE HYDROmorphone INJ [Dilaudid Inj] Med 11/18/24 10:28 Discontinued 1 mg IVP X1 ONE Vital Signs Vital signs: Vital Signs Temperature 98.0 F 11/18/24 06:21 Pulse Rate 90 11/18/24 06:21 Respiratory Rate 18 11/18/24 06:21 Blood Pressure 154/118 H 11/18/24 06:21 Pulse Oximetry (%) 96 11/18/24 06:21 Oxygen Delivery Method Room Air 11/18/24 06:21 Back Pain / Injury MDM Narrative MDM Narrative:: MRI lumbar spine without contrast is ordered to further investigate cause of severe lower back pain. On previous visit, CT lumbar spine revealed L4-L5 3 mm central lumbar disc bulge and L5-S1 2 mm central lumbar disc bulge. Result of the MRI did confirm the same pathology as the CT scan without any additional concern for abscess, osteomyelitis, fracture, or acute nerve compression. MRI shows L5-S1 4 mm central lumbar disc bulge and L4-L5 2 mm central lumbar disc bulge. Patient was instructed to follow up with his PCP Dr. Chicas for referral to physical therapy as this is likely the best form of treatment for lumbar disc bulge pain. He will take acetaminophen-codeine as needed as was prescribed by Dr. Tang on the previous ED visit. He was instructed to continue activity as tolerated with caution in activities which exacerbate the pain and caution for proper posturing as given in discharge handouts. Patient data External records reviewed:: [facility] previous records Clinical information provided by:: patient and family Social determinants that could affect healthcare access:: none Patient has the following chronic illnesses:: As above How is presenting disease/condition affected by chronic disease/condition?: uneffected by Evaluation data The following diagnostics were reviewed and interpreted by me:: radiology exam(s) Lab and/or radiology exams considered but not ordered:: Ordered Interpretation Summary: CT lumbar spine without contrast 11/16/2024 Findings: Prominent osteopenia No lumbar vertebral body fracture Mild disc narrowing posteriorly L5-S1 No spondylolisthesis Intact pedicles laminated transverse and posterior spinous processes L5-S1 2 mm central lumbar disc bulge L4-L5 3 mm central lumbar disc bulge L3-L4 no disc protrusion L2-L3 no disc protrusion L1-L2 no disc protrusion Impression: L5-S1 2 mm central lumbar disc bulge L4-L5 3 mm central lumbar disc bulge MRI lumbar spine without contrast Findings: Adequate alignment lumbar vertebral bodies No lumbar fracture Diffuse lumbar disc desiccation Normal marrow signal lumbar vertebral bodies L5-S1 4 mm central lumbar disc bulge L4-L5 2 mm central lumbar disc bulge Impression: No lumbar fracture L5-S1 4 mm central lumbar disc bulge L4-L5 2 mm central lumbar disc bulge Medications / Prescriptions Medications or Prescriptions considered but not ordered:: Given Medication administrations:: Medication Administration History Discontinued Medications Hydrocodone Bitart/Acetaminophen (Hydrocodone/Apap 10/325 Tab) 1 tab PO X1 ONE Stop: 11/18/24 10:41 Last Admin: 11/18/24 10:47 Dose: 1 tab Documented By: MALVIN Hydromorphone HCl (Hydromorphone Inj 2 Mg/Ml Vial) 1 mg IVP X1 ONE Stop: 11/18/24 10:29 Last Admin: 11/18/24 10:46 Dose: Not Given Documented By: MALVIN Non-Admin Reason: Discontinued Given Consultations Consultation(s) initiated? (list below): No Diagnosis Differential diagnosis back pain/injury: lumbar radiculopathy, strain of lumbar region and discitis Most likely diagnosis given after review of the tests above:: Lumbar spinal stenosis, Lumbar disc herniation, Lumbar disc disease Admission Indicated Admission indicated?: not indicated Admission Request Was there a request for admission?: No Disposition Plan Disposition Plan: Discharge Discharge Attestation Discharge Attestation: The patient and all family members were given an opportunity to ask questions and understood the discharge instructions. Discharge instructions specifically effects, indications for sooner follow up or return to the emergency department, and the expected course of current diagnosis. Patient condition: Stable Discharge Plan Plan Patient Disposition: HOME (Self Care) Patient condition on transfer: Stable Prescriptions/Referrals Prescriptions/Med Rec: No Action atorvastatin 40 mg Tablet 20 mg PO BID Rx Instructions: 0.5 tablet bid metoprolol succinate 200 mg Tablet Extended Release 24 Hr 100 mg PO BID Rx Instructions: 0.5 tablet bid lisinopril 20 mg Tablet 20 mg PO QDAY clopidogrel 75 mg Tablet 75 mg PO QDAY folic acid 400 mcg Tablet 0.4 mg PO QDAY omeprazole 20 mg Capsule,Delayed Release(Dr/Ec) 20 mg PO BID doxazosin 4 mg Tablet 4 mg PO QDAY aspirin 81 mg Tablet 81 mg PO QDAY finasteride 5 mg Tablet 5 mg PO DAILY Ozempic 1 mg/dose (4 mg/3 mL) Pen Injector 1 mg SUBCUT QWEEK acetaminophen-codeine 300-30 mg tablet 2 tab PO TID MDD 6 PRN (Reason: pain) Qty: 20 0RF lidocaine [Lidoderm] 5 % adhesive patch,medicated 2 patch topical QDAY PRN (Reason: pain) Qty: 30 0RF Rx Instructions: leave on most painful area for up to 12 hrs cyclobenzaprine 5 mg tablet 10 mg PO TID PRN (Reason: muscle spasm) Qty: 30 0RF tamsulosin [Flomax] 0.4 mg capsule 0.4 mg PO QDAY Qty: 14 0RF hydrocodone-acetaminophen 5-325 mg tablet 1 tab PO BID MDD 10mg PRN (Reason: pain) Qty: 10 0RF Referrals: Leroy Chicas MD [Primary Care Provider] - In 1 week Problem List Clinical Impression: Bulging lumbar disc, Lumbar back pain Patient/Caregiver Discharge Instructions Education Materials: Relieving Back Pain, Back Safety: Bending, Back Safety: Lifting, Back Safety: Sleeping Positions, Back Safety: Sitting, Back Safety: Standing, Back Safety: Basics of Good Posture, Common Spine and Disk Problems, ED Degenerative Disk Disease Additional Instructions: You have been seen in the ED today 11/18/2024 for low back pain. MRI results confirmed findings that were found on CT scan on your last visit. The area of disc bulge are the L4-L5 and L5-S1 regions. Pain caused by this condition can improve with physical therapy. Please see your doctor as soon as you can to set up a referral. Otherwise, pain in the acute setting can be managed with cold or warm compresses, topical patches, or pain medications as needed. Please be careful with your posture and movements as in the described handouts but do not completely limit your physical activity. Motion is still good for your condition and important to keep up. Please return to the ED if you experience any of the following red flag symptoms, including sudden loss of sensation to the bottom or legs, loss of control over urination or bowel movements, and new onset of weakness. Print Language: Uzbek Stand Alone Forms: [employer] Award Info., Patient Portal Info Letter
[2024-11-18 10:13] VITALS: BP 159/93; PULSE 80; RESP 17; TEMP 36.7; O2SAT 97
[2024-11-18] MEDS: HYDROcodone/APAP 10/325 TAB PO (10:47)
[2024-11-18 11:34] VITALS: BP 145/60; PULSE 80; RESP 18; TEMP 36.6; O2SAT 98
== END 2024-11-18 11:36 | disposition home or self-care (01) ==
PROVIDERS: Emergency Provider Emergency Medicine; PCP Family Medicine
DX: M51.370 Other intervertebral disc degeneration, lumbosacral region with discogenic back pain only (principal); M51.360 Other intervertebral disc degeneration, lumbar region with discogenic back pain only
CPT/HCPCS: 72148; 99284; A9270